=== PATIENT | male | born 1995 | race Caucasian/White ===

== ENCOUNTER 2021-04-07 17:41 | Emergency (ER) | payer OTHER ==
--- NOTE | 2021-04-07 18:12 | ED Physician Documentation ---
History of Present Illness - Stated complaint Stated Complaint: CHEST PX,NAUSEA,SOA - Chief complaint Chief Complaint: General - Additonal information Additional information: 25-year-old Male presents emergency department for evaluation of acute chest pain that he noted this morning when he woke up about 10 AM. He reports that initially it was mild left-sided chest pain there is a day is gone on is gotten progressively stronger. About 4 PM he was sitting on the couch watching TV with his when it became severe, radiated to his back and caused nausea. Denies any history of similar. Denies any history of hypertension or diabetes. He does vape daily. No family history of sudden or early cardiac disease. Patient has no history of DVT or cancer. No recent travel, immobilization. No hormone use. Patient is vaccinated for COVID-19. Review of Systems Constitutional: reports: Reviewed and negative Nose: reports: Reviewed and negative Throat: reports: Reviewed and negative Cardiac: reports: Chest pain / pressure. denies: Palpitations, Pedal edema, Calf pain Respiratory: denies: Dyspnea, Cough GI: reports: Nausea : reports: Reviewed and negative Skin: reports: Reviewed and negative PD PAST MEDICAL HISTORY - Allergies Allergies/Adverse Reactions: Allergies Allergy/AdvReac Type Severity Reaction Status Date / Time No Known Drug Allergies Allergy Verified 04/07/21 17:52 PD ED PE NORMAL - General General: Alert and oriented X 3, No acute distress - HEENT HEENT: PERRL, Moist mucous membranes - Neck Neck: Supple, no meningeal sign - Cardiac Cardiac: RRR, No murmur, Strong equal pulses (2+ carotid bilaterally. 2+ radial bilaterally.) - Respiratory Respiratory: Clear bilaterally - Abdomen Abdomen: Normal bowel sounds, Soft, Non tender, Non distended, Other (No abdominal tenderness elicited. No abdominal bruit. No pulsatile mass.) - Back Back: No CVA TTP - Derm Derm: Normal color, Warm and dry, No rash - Extremities Extremities: No deformity, No edema, No calf tenderness / cord - Neuro Neuro: Alert and oriented X 3, car carder 2-12 intact, No motor deficit Eye Opening: Spontaneous Motor: Obeys Commands Verbal: Oriented GCS Score: 15 Results - Vitals Vitals: Vital Signs - 24 hr 04/07/21 17:46 Temperature 36.7 C Heart Rate 77 Respiratory 16 Rate Blood Pressure 127/82 H O2 Saturation 98 Oxygen O2 Source Room air - EKG (time done) 1756 Rate: Rate (enter#) (68) Rhythm: NSR [place]: Normal Intervals: Normal [place] QRS: Normal Ischemia: Normal ST segments Compare to prior EKG: Old EKG unavailable Computer interpretation: Agree with computer - Labs Labs: Laboratory Tests 04/07/21 04/07/21 04/07/21 18:18 18:18 18:18 WBC 10.2 RBC 5.46 Hgb 16.3 Hct 45.9 MCV 84.1 MCH 29.9 MCHC 35.5 RDW 12.0 Plt Count 220 MPV 11.1 Neut # (Auto) 6.1 Lymph # (Auto) 3.1 Story # (Auto) 0.7 Eos # (Auto) 0.3 Baso # (Auto) 0.0 Absolute Nucleated RBC 0.00 Nucleated RBC % 0.0 Sodium 140 Potassium 4.0 Chloride 107 Carbon Dioxide 25 Anion Gap 8.0 BUN 14 Creatinine 1.1 Estimated GFR (MDRD) 82 L Glucose 92 Calcium 9.6 Total Bilirubin 0.7 AST 26 ALT 40 Alkaline Phosphatase 71 Troponin I High Sens < 2.3 L Total Protein 7.8 Albumin 4.5 Globulin 3.3 Albumin/Globulin Ratio 1.4 Lipase 34 - Rads (name of study) CXR Radiology: Final report received (no acute cardiopulmonary process ) PD MEDICAL DECISION MAKING - ED course Complexity details: reviewed results, considered differential, d/w patient ED course: 25-year-old male presents emergency department for evaluation of left-sided chest pain that radiated to his back. Reports that it began about 10 AM. He did report some nausea but no vomiting. Chest pain was not reproducible. Patient is PERC and Wells criteria negative. Screening EKG was unremarkable. High-sensitivity troponin negative. Screening labs are also without Worrisome findings. Chest x-ray was without acute focal findings, There was no mediastinal widening. There was no pulsatile mass within the abdomen. At the time that the patient presented to the emergency department he was pain-free and there was no vital sign abnormalities noted. At this time patient is stable for discharge home. Emergent worrisome return precautions were discussed. Did recommend close follow-up with primary care provider. Departure - Departure Disposition: 01 Home, Self Care Clinical Impression: Chest pain Qualifiers: Chest pain type: unspecified Qualified Code(s): R07.9 - Chest pain, unspecified Condition: Stable Record reviewed to determine appropriate education?: Yes Instructions: ED Chest Pain O Gadiel Comments: Ariel you were seen in the emergency department today for chest pain. At the time the cause of your symptoms is not clear. Your screening labs were all essentially normal. Your chest x-ray was unremarkable. Your EKG was also normal. Was not able to reproduce the chest pain with movement, deep breathing or palpation. If at any point you feel that your symptoms are worsening, you have fainting spells or suddenly short of breath and please return immediately to the ER. I do recommend that you discuss this ED visit with your primary care provider. If it becomes a recurrent concern further testing can be considered.
[2021-04-07 18:25] LABS: BASOPHILS % (AUTO) 0.2 %; EOSINOPHILS # (AUTO) 0.3 10^3/uL (0.0-0.7); EOSINOPHILS % (AUTO) 2.7 %; HCT - HEMATOCRIT 45.9 % (42.0-52.0); HGB - HEMOGLOBIN 16.3 g/dL (14.0-18.0); LYMPHOCYTES # (AUTO) 3.1 10^3/uL (1.5-3.5); LYMPHOCYTES % (AUTO) 30.6 %; MEAN CORPUSCULAR HEMOGLOBIN 29.9 pg (27.0-31.0); MEAN CORPUSCULAR HGB CONC 35.5 g/dL (32.0-36.0); MEAN CORPUSCULAR VOLUME 84.1 fL (80.0-94.0); MEAN PLATELET VOLUME 11.1 fL (7.4-11.4); MONOCYTES # (AUTO) 0.7 10^3/uL (0.0-1.0); MONOCYTES % (AUTO) 6.7 %; NEUTROPHILS # (AUTO) 6.1 10^3/uL (1.5-6.6); NEUTROPHILS % (AUTO) 59.5 %; PLT - PLATELET COUNT 220 10^3/uL (130-450); RED BLOOD COUNT 5.46 10^6/uL (4.70-6.10); WHITE BLOOD COUNT 10.2 x10^3/uL (4.8-10.8)
--- NOTE | 2021-04-07 18:26 | XRAY Report ---
PROCEDURE: Chest 1 View X-Ray INDICATIONS: chest pain TECHNIQUE: One view of the chest was acquired. COMPARISON: none FINDINGS: Surgical changes and devices: None. Lungs and pleura: No pleural effusions or pneumothorax. Lungs are clear. Mediastinum: Mediastinal contours appear normal. Heart size is normal. Bones and chest wall: No suspicious bony lesions. Overlying soft tissues appear unremarkable. IMPRESSION: No acute pulmonary process. Reviewed by: Irene Kaye MD on 04/07/2021 6:24 PM PDT Approved by: Irene Kaye MD on 04/07/2021 6:24 PM PDT Station ID: [id number]
[2021-04-07 18:41] LABS: CREATININE 1.1 mg/dL (0.6-1.2)
[2021-04-07 18:42] LABS: ALBUMIN 4.5 g/dL (3.2-5.5); ALBUMIN/GLOBULIN RATIO 1.4 (1.0-2.2); BILIRUBIN,TOTAL 0.7 mg/dL (0.2-1.0); CALCIUM 9.6 mg/dL (8.5-10.3); TOTAL PROTEIN 7.8 g/dL (6.7-8.2)
[2021-04-07 19:26] VITALS: BP 120/74
== END 2021-04-07 19:23 | disposition home or self-care (01) ==
LOC: ED 17:41
DX: R07.9 Chest pain, unspecified (principal)
CPT/HCPCS: 36415; 80053; 83690; 84484; 85025; 93005; 99283; 99284